=== PATIENT | female | born 1980 | race African-American/Black ===

== ENCOUNTER → 2017-01-29 | Outpatient (CLI) | payer OTHER ==
--- NOTE | ~2017-01-29 | CR169 ---
[facility] A Service of [facility] & [facility] & [facility] RADIOLOGY TEXT RESULTS PATIENT: MORALES CHAVEZ LOCATION: [facility] : [birth year] UNIT #: [id number] AGE: [address]: KRYSTIAN REY APRN SEX: F ORDER DR: [id number] [facility] [address] [place], [place] [address] [id number] O MR#: [id number] Acc #: [id number] NAME: MORALES CHAVEZ : 1980 SEX: F STUDY DATE/TIME: 01/29/2017 11:47 UNIT: [facility] ROOM: STUDY DESCRIPTION: CR Knee 2 Views Lt Attending Physician: Krystian Rey A.P.R.N. Referring Physician: Krystian Rey A.P.R.N. Ordering Physician: Krystian Rey A.P.R.N. Primary Care Physician: Krystian Rey A.P.R.N. MEDICAL IMAGING REPORT This report is preliminary unless electronic signature is present EXAM Left knee, 01/29/2017, [facility]. HISTORY 36-year-old female patient with bilateral knee pain. Pain described as posterior and lateral deep knee location. Swelling off and on. COMPARISON Left knee images, 07/07/2016. FINDINGS AP and cross-table lateral views of the left knee demonstrate narrowing of the medial femoral tibial joint with early marginal osteophyte formation. I see no joint effusion and no loose body. Cortex is intact and mineralization preserved. Soft tissues are unremarkable with no obvious joint effusion. IMPRESSION Mild progression of degenerative arthropathy involving medial femoral tibial joint. Dictated by... Valdo Florence M.D. THIS IS AN ELECTRONICALLY VERIFIED REPORT Valdo Florence M.D. at 01/29/2017 3:41 PM BLESSING/dale TD: 01/29/2017 15:16 JOB #: [id number] [facility] A Service of [facility] & [facility] & [facility] RADIOLOGY TEXT RESULTS PATIENT: MORALES CHVAEZ LOCATION: [facility] #: [id number] : [birth year] UNIT #: [id number] AGE: [address]: KRYSTIAN REY APRN SEX: F ORDER DR: MEDICAL IMAGING REPORT Page 1 of 1 COPY
--- NOTE | ~2017-01-29 | CR170 ---
[facility] A Service of [facility] & [facility] / [facility] RADIOLOGY TEXT RESULTS PATIENT: MORALES CHAVEZ LOCATION: [facility] : 82 UNIT #: [id number] AGE: [address]: KRYSTIAN REY APRN SEX: F ORDER DR: [id number] [facility] [address] [place], [place] [address] [id number] O MR#: [id number] Acc #: [id number] NAME: MORALES CHAVEZ : 1980 SEX: F STUDY DATE/TIME: 01/29/2017 11:47 UNIT: [facility] ROOM: STUDY DESCRIPTION: CR Knee 2 Views Rt Attending Physician: Krystian Rey A.P.R.N. Referring Physician: Krystian Rey A.P.R.N. Ordering Physician: Krystian Rey A.P.R.N. Primary Care Physician: Krystian Rey A.P.R.N. MEDICAL IMAGING REPORT This report is preliminary unless electronic signature is present EXAM Right knee 01/29/2017 HISTORY 36-year-old female with bilateral deep knee pain swelling off and on. COMPARISON STUDIES 07/07/2016 FINDINGS AP and cross-table lateral views of the right knee demonstrate some narrowing of the medial femoral tibial joint with early marginal osteophyte formation. I see no loose body. There is a joint effusion present. Mineralization is preserved and cortex intact. IMPRESSION Degenerative arthropathy involving medial femoral tibial joint with coexisting joint effusion. Dictated by... Valdo Florence M.D. THIS IS AN ELECTRONICALLY VERIFIED REPORT Valdo Florence M.D. at 01/30/2017 8:27 AM BLESSING/jose g TD: 01/29/2017 15:44 JOB #: [id number] MEDICAL IMAGING REPORT Page 1 of 1 COPY
== END | disposition home or self-care (01) ==
LOC: CRAD 11:20
DX: M25.561 Pain in right knee (principal); M17.0 Bilateral primary osteoarthritis of knee; M25.461 Effusion, right knee
CPT/HCPCS: 73560

== ENCOUNTER 2017-04-10 09:48 | Emergency (ER) | payer OTHER ==
[2017-04-10 14:05] LABS: ALBUMIN SERUM 4.2 g/dL (3.5-5.0); BILIRUBIN,TOTAL 0.8 mg/dL (0.2-2.0); BUN/CREATININE RATIO 16.66; CALCIUM SERUM 8.9 mg/dL (8.4-10.2); CREATININE SERUM 0.6 mg/dL (0.6-1.4); GLOM FILT RATE Estimated 136.9 mL/min (>60); POTASSIUM 3.7 mmol/L (3.5-5.1); PROTEIN TOTAL SERUM 7.8 g/dL (6.0-8.3)
== END 2017-04-10 14:50 | disposition home or self-care (01) ==
LOC: CED 09:48 → CFTX 09:48
PROVIDERS: Nurse Practitioner
DX: R60.0 Localized edema (principal)
CPT/HCPCS: 36415; 80053; 83880; 99283